=== PATIENT | female | born 1990 | race Caucasian/White ===

== ENCOUNTER 2018-08-27 22:04 | Emergency (ER) | payer MEDICAID ==
--- NOTE | 2018-08-27 22:20 | Emergency Department Record ---
History of Present Illness - General Chief Complaint: Cough Stated Complaint: COUGH Source: Patient Mode of Arrival: Ambulatory Limitations: No limitations - History of Present Illness Initial Comments: 27 yo female presents to ED for evaluation of non-productive cough symptoms for the past 2 months. Patient denies fevers, chills, or previous lung disease. Patient reports that her symptoms are worse when supine. Patient also reports that her symptoms sill begin to improve but then worsen. Patient denies health problems at her baseline. MD Complaint: Cough Onset/Timin -: Month(s) Severity: Moderate Consistency: Intermittent Improves With: Nothing Worsens With: Deep breaths, Other (Supine) Associated Symptoms: Denies other symptoms Treatments Prior to Arrival: None - Related Data Previous Rx's Medication Instructions Recorded Benzonatate [Tessalon] 2 cap PO Q8H PRN #30 cap 08/27/18 Prednisone [Prednisone 20Mg] 20 mg PO BID #15 tab 08/27/18 Allergies Allergy/AdvReac Type Severity Reaction Status Date / Time codeine AdvReac RASH Verified 08/27/18 22:16 hydrocodone AdvReac RASH Verified 08/27/18 22:16 Review of Systems Constitutional: Denies: Chills, Fever, Malaise, Night sweats Eyes: Denies: Eye discharge, Eye pain ENT: Denies: Congestion, Ear pain, Epistaxis Respiratory: Reports: Cough. Denies: Dyspnea Cardiovascular: Denies: Chest pain, Dyspnea on exertion Endocrine: Denies: Fatigue, Heat or cold intolerance Gastrointestinal: Denies: Abdominal pain, Nausea, Vomiting Genitourinary: Denies: Incontinence, Retention Musculoskeletal: Denies: Arthralgia, Back pain Skin: Denies: Bruising, Change in color Neurological: Denies: Abnormal gait, Confusion, Headache, Seizure Psychiatric: Denies: Anxiety Hematological/Lymphatic: Denies: Anemia, Blood Clots Physical Exam - General General Appearance: Alert, Oriented x3, Cooperative, Mild distress Limitations: No limitations - Head Head exam: Atraumatic, Normocephalic, Normal inspection Head exam detail: negative: Abrasion, Contusion, Lugo's sign, General tenderness, Hematoma, Laceration - Eye Eye exam: Normal appearance. negative: Conjunctival injection, Periorbital swelling, Periorbital tenderness, Scleral icterus - ENT Ear exam: negative: Auricular hematoma, Auricular trauma Nasal Exam: negative: Active bleeding, Discharge, Dried blood, Foreign body Mouth exam: negative: Drooling, Laceration, Muffled voice, Tongue elevation - Neck Neck exam: Normal inspection. negative: Meningismus, Tenderness - Respiratory Respiratory exam: Normal lung sounds bilaterally. negative: Rales, Respiratory distress, Rhonchi, Stridor - Cardiovascular Cardiovascular Exam: Regular rate, Normal rhythm, Normal heart sounds - GI/Abdominal GI/Abdominal exam: Soft. negative: Rebound, Rigid, Tenderness - Rectal Rectal exam: Deferred - exam: Deferred - Extremities Extremities exam: Normal inspection. negative: Pedal edema, Tenderness - Back Back exam: Denies: CVA tenderness (R), CVA tenderness (L) - Neurological Neurological exam: Alert, Normal gait, Oriented X3 - Psychiatric Psychiatric exam: Normal affect, Normal mood - Skin Skin exam: Normal color. negative: Abrasion Type of lesion: negative: abrasion Course Vital Signs 08/27/18 22:09 Temperature 99.0 F Pulse Rate [ 101 H Left] Respiratory 18 Rate Blood Pressure 105/81 [Left Arm] Pulse Ox 100 - Reevaluation(s) Reevaluation #1: 08/27/18 22:55 CXR: No acute process Patient was updated on her radiograph results, symptoms are likely the result of lung inflammation/bronchitis. Will treat with Prednisone and Tessalon Perles as directed. Patient appears stable for discharge at this time. Disposition Disposition: Discharge Clinical Impression: Bronchitis Disposition: Home, Self-Care Condition: (2) Stable Instructions: Acute Bronchitis (ED) Additional Instructions: Return to ED if your symptoms worsen or if you have any concerns. Prednsione and Tessalon Perles as directed. Follow-up with your family doctor in 3-5 days as directed. Prescriptions: Benzonatate [Tessalon] 2 cap PO Q8H PRN #30 cap PRN Reason: Cough Prednisone [Prednisone 20Mg] 20 mg PO BID #15 tab Forms: Patient Portal Access Time of Disposition: 22:57 Quality - Quality Measures Quality Measures: N/A - Blood Pressure Screening Does Patient Have Any of the Following: No Blood Pressure Classification: Pre-Hypertensive BP Reading Systolic Measurement: 105 Diastolic Measurement: 81 Screening for High Blood Pressure: < Pre-Hypertensive BP, F/U Documented > [ [id number]] Pre-Hypertensive Follow-up Interventions: Referral to alternative/primary care provider.
[2018-08-27] MEDS ORDERED: BENZONATATE 100 MG CAPSULE PO ONE (22:54)
[2018-08-27] MEDS ORDERED: PREDNISONE 20 MG TAB PO ONE (22:54)
--- NOTE | 2018-08-31 12:35 | RADIOLOGY REPORT ---
EXAM: CHEST, TWO VIEWS HISTORY: COUGH FOR ABOUT TWO MONTHS. TECHNIQUE: PA and lateral views of the chest were obtained. Comparison: None. FINDINGS: The heart size is normal. No definite acute infiltrate seen. No pleural effusion or pneumothorax evident. IMPRESSION: THE CHEST APPEARS NEGATIVE WITH NO DEFINITE ACUTE INFILTRATE SEEN. JOB NUMBER: [id number] MTDD
== END 2018-08-27 23:10 | disposition home or self-care (01) ==
LOC: ER 22:04
DX: J20.9 Acute bronchitis, unspecified (principal); Z87.891 Personal history of nicotine dependence
CPT/HCPCS: 99283 ×2; 71046; J7512